=== PATIENT | female | born 1985 | race African-American/Black ===

== ENCOUNTER 2016-11-27 08:02 | Emergency (ER) | payer OTHER ==
[~2016-11-27] VITALS: Ht 170.2 cm; Wt 64.9 kg
[~2016-11-27 08:02] MED LIST: IBUPROFEN600 MG ORAL; KENALOG 0.025%15 GM APPLIC; NKM
--- NOTE | 2016-11-27 08:26 | Emergency Room Report ---
History of Present Illness General Chief Complaint: Female Urogenital Problems Source: Patient Present Illness HPI 31 YOF with 2 days vaginal discharge, white in color. Denies dysuria, polyuria , fever/chills, abd pain, flank pain. Had chlamdyia years ago. Faithful with 1 partner. Denies frequent UTIs. Allergies: Coded Allergies: No Known Allergies (Unverified , 03/07/15) Patient History Past Medical History: none Past Surgical History: none Pertinent Family History: none Social History: Denies: alcohol use, drug use, smoking Last Menstrual Period: 11/20/2016 Now: No Immunizations: UTD Reviewed Nursing Documentation: PMH: Agreed, PSxH: Agreed Nursing Documentation-PMH Past Medical History: No Stated History Review of Systems All Other Systems: negative except mentioned in HPI Physical Exam Vital Signs Date Time Temp Pulse Resp B/P Pulse Ox O2 Delivery O2 Flow Rate FiO2 11/27/16 08:05 98.2 66 14 110/57 99 Room Air Sp02 EP Interpretation: reviewed, normal General Appearance: normal inspection, well appearing, no apparent distress, alert Head: atraumatic ENT: normal ENT inspection, hearing grossly normal, normal voice Neck: normal inspection, full range of motion, supple, no bony tend Respiratory: normal inspection, lungs clear, normal breath sounds, no respiratory distress, no retraction, no wheezing Cardiovascular #1: regular rate, rhythm, no edema Gastrointestinal: normal inspection, normal bowel sounds, non tender, soft, no guarding, no hernia Genitourinary: no CVA tenderness Musculoskeletal: normal inspection, back normal, normal range of motion, Fletcher' s Sign negative Neurologic: normal inspection, alert, oriented x3, responsive, 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 No UTI Patient tx with flagyl 2g here as per Uptodate recommendation Rx for flagyl for 7 days given for her to give to partner Strongly advised avoidance of ETOH during this week of tx Last Vital Signs Date Time Temp Pulse Resp B/P Pulse Ox O2 Delivery O2 Flow Rate FiO2 11/27/16 08:05 98.2 66 14 110/57 99 Room Air Status: improved Disposition: HOME, SELF-CARE Scripts Metronidazole* (FLAGYL*) 500 Mg Tablet 500 MG ORAL BID for 7 Days, #14 TAB Prov: SUNDAR WALDRON M.D. 11/27/16 SUNDAR WALDRON M.D. Nov 27, 2016 08:26
[2016-11-27 09:11] LABS: APPEARANCE,URINE SLIGHTLY CLOUDY; KETONES,URINE NEGATIVE (NEGATIVE); PH,URINE 6 (4.5-8.0); PROTEIN,URINE NEGATIVE (NEGATIVE)
[2016-11-27 09:12] LABS: BACTERIA,URINE FEW /HPF; LEUKOCYTE ESTERASE ,URINE 1+ (NEGATIVE); MUCUS,URINE FEW /LPF (NONE/OCC); NITRITE,URINE NEGATIVE (NEGATIVE); SQUAMOUS EPITHELIAL CELL,UR FEW /LPF (NONE/OCC); UROBILINOGEN,URINE NORMAL MG/DL (0.0-1.0)
[2016-11-27 09:13] LABS: TRICHOMONAS,URINE FEW /HPF
[2016-11-27] MEDS ORDERED: METRONIDAZOLE500 MG ORAL (09:24)
[2016-11-27 09:30] VITALS: BP 100/57
[2016-11-27] MEDS ORDERED: metroNIDAZOLE 500mg tab ORAL ONE (09:30)
== END 2016-11-27 09:30 | disposition home or self-care (01) ==
LOC: EMR 08:25
DX: A59.09 Other urogenital trichomoniasis (principal)
CPT/HCPCS: 81003; 81025; 99283

== ENCOUNTER 2017-04-25 22:24 | Emergency (ER) | payer SELFPAY ==
[~2017-04-25] VITALS: Ht 170.2 cm; Wt 72.6 kg
[~2017-04-25 22:24] MED LIST changes: +METRONIDAZOLE500 MG ORAL
[2017-04-25 22:55] VITALS: BP 108/57
[2017-04-25] MEDS ORDERED: IBUPROFEN600 MG ORAL (22:59)
[2017-04-25] MEDS ORDERED: Ketorolac 60mg Inj IM ONE (23:00)
--- NOTE | 2017-04-25 23:04 | Emergency Room Report ---
History of Present Illness General Chief Complaint: Back Pain-No Injury Source: Patient Present Illness HPI Is a 31-year-old female with no cerebrovascular issue. She present which complaining of thoracic back pain. This occurred about 3 weeks ago. She was behind someone in line and she has he sneezed really badly. She tried to stifle it. When she did sneezed she felt pain to her left/mid upper back. She said brought her to her knee. Denies any fever chills denies any nausea vomiting. Since then she been having some intermittent pain. Especially when she takes a deep breath or movement. No fever or chills. No nausea no vomiting. For some reason his been worse in the last few days. Pain is 8/10. Better with ibuprofen. Allergies: Coded Allergies: No Known Allergies (Unverified , 03/07/15) Patient History Past Medical History: see triage record, old chart reviewed Past Surgical History: other Pertinent Family History: none Social History: Denies: smoking Last Menstrual Period: April 10, 2017 Now: No : 2 Para: 2 Immunizations: other Reviewed Nursing Documentation: PMH: Agreed, PSxH: Agreed Nursing Documentation-PMH Past Medical History: No Stated History Review of Systems Eye: Denies: blurred vision, eye pain ENT: Denies: ear pain, nose congestion, throat swelling Respiratory: Denies: cough, shortness of breath Cardiovascular: Denies: chest pain, palpitations Gastrointestinal: Denies: abdominal pain, diarrhea, nausea, vomiting Musculoskeletal: Reports: back pain, Denies: joint pain Skin: Denies: rash Neurological: Denies: headache, numbness Endocrine: Denies: increased thirst, increased urine Hematologic/Lymphatic: Denies: easy bruising All Other Systems: negative except mentioned in HPI Physical Exam Vital Signs Date Time Temp Pulse Resp B/P Pulse Ox O2 Delivery O2 Flow Rate FiO2 04/25/17 22:45 98.2 78 18 144/90 100 Room Air vitals unremarkable Sp02 EP Interpretation: reviewed, normal General Appearance: well appearing, no apparent distress, alert Head: normocephalic, atraumatic Eyes: bilateral eye EOMI, bilateral eye PERRL ENT: hearing grossly normal, normal pharynx Neck: full range of motion, supple, no meningismus Respiratory: chest non-tender, lungs clear, normal breath sounds Cardiovascular #1: regular rate, rhythm, no murmur Gastrointestinal: normal bowel sounds, non tender, no mass, no organomegaly, no bruit, non-distended Musculoskeletal: back normal - Tender to palpation over the medial aspect of the left scapula area. No deformity. No foreign body., gait/station normal, normal range of motion Neurologic: alert, oriented x3 Psychiatric: mood/affect normal Skin: warm/dry Medical Decision Making Diagnostic Impression: Primary Impression: Strain of thoracic region Qualified Codes: S29.019A - Strain of muscle and tendon of unspecified wall of thorax, initial encounter ER Course Patient with back strain/muscle strain from sneezing. No evidence of pneumonia. No evidence of ACS, PE, dissection to name a few. We'll discharge home. Chest X-Ray Diagnostic Results Chest X-Ray Diagnostic Results : Chest X-Ray Ordered: Yes # of Views/Limited/Complete: 1 View Indication: Chest Pain EP Interpretation: Yes Interpretation: no consolidation, no effusion, no pneumothorax, no acute cardiopulmonary disease Impression: No acute disease Interpreting ER Provider: Electronically signed by Shemar Iqbal MD Last Vital Signs Date Time Temp Pulse Resp B/P Pulse Ox O2 Delivery O2 Flow Rate FiO2 04/25/17 22:45 98.2 78 18 144/90 100 Room Air Status: improved Disposition: HOME, SELF-CARE Condition: Stable Scripts Ibuprofen* (MOTRIN*) 600 Mg Tablet 600 MG ORAL Q8H Y for For Pain, #30 TAB 0 Refills Prov: SHEMAR IQBAL M.D. 04/25/17 Patient Instructions: Back Pain, Adult Additional Instructions: No heavy lifting. Followup with your DrJonny in 3-7 days as needed. Return if symptom worsen. SHEMAR IQBAL M.D. Apr 25, 2017 23:04
[2017-04-25 23:19] VITALS: BP 140/72
--- NOTE | 2017-04-26 11:17 | Diagnostic Imaging Report ---
Indication: Dyspnea Comparison: None A single view chest radiograph was obtained. Findings: Cardiomediastinal appearance is within normal limits for age. Pulmonary vascularity is appropriate. The diaphragmatic contour is smooth and costophrenic angles are sharp. No pleural effusions are identified. There is a scoliosis of the thoracic spine. Impression: No acute findings
== END 2017-04-25 22:49 | disposition home or self-care (01) ==
LOC: EMR 22:35
DX: S29.019A Strain of muscle and tendon of unspecified wall of thorax, initial encounter (principal); R07.9 Chest pain, unspecified; X58.XXXA Exposure to other specified factors, initial encounter; Y92.9 Unspecified place or not applicable
CPT/HCPCS: 71010; 96372; 99283

== ENCOUNTER 2017-06-22 00:38 | Emergency (ER) | payer SELFPAY ==
[~2017-06-22] VITALS: Ht 170.2 cm; Wt 70.3 kg
[2017-06-22 00:58] VITALS: BP 112/68
[2017-06-22 01:18] VITALS: BP 112/68
--- NOTE | 2017-06-22 01:22 | Emergency Room Report ---
History of Present Illness General Chief Complaint: Neck Pain Source: Patient Present Illness HPI Is a 32-year-old female with no past medical history. She presents with complaint of neck pain. Onset for last 2 days. He said it hurts her to swallow. Her to hold her head up. Denies any fever or chills he denies any nausea vomiting. She felt like there is a swollen area to the neck. Denies any other complaint. No trauma. No hoarseness of her voice. No weight loss. Allergies: Coded Allergies: No Known Allergies (Unverified , 03/07/15) Patient History Past Medical History: see triage record, old chart reviewed Past Surgical History: none Pertinent Family History: none Social History: Denies: smoking Now: No Immunizations: other Reviewed Nursing Documentation: PMH: Agreed, PSxH: Agreed Nursing Documentation-PMH Past Medical History: No Stated History Review of Systems Eye: Denies: eye pain, blurred vision ENT: Denies: ear pain, nose congestion, throat swelling Respiratory: Denies: cough, shortness of breath Cardiovascular: Denies: chest pain, palpitations Gastrointestinal: Denies: abdominal pain, diarrhea, nausea, vomiting Musculoskeletal: Denies: back pain, joint pain Skin: Denies: rash Neurological: Denies: headache, numbness Endocrine: Denies: increased thirst, increased urine Hematologic/Lymphatic: Denies: easy bruising All Other Systems: negative except mentioned in HPI Physical Exam Vital Signs Date Time Temp Pulse Resp B/P (MAP) Pulse Ox O2 Delivery O2 Flow Rate FiO2 06/22/17 00:39 98.2 76 20 112/68 97 Room Air vitals normal Sp02 EP Interpretation: reviewed, normal General Appearance: well appearing, no apparent distress, alert Head: normocephalic, atraumatic Eyes: bilateral eye PERRL, bilateral eye EOMI ENT: hearing grossly normal, normal pharynx Neck: full range of motion, supple, no meningismus, tender - Patient has a mildly enlarged thyroid. No bruit. No redness or warmth. Respiratory: chest non-tender, lungs clear, normal breath sounds Cardiovascular #1: regular rate, rhythm, no murmur Gastrointestinal: normal bowel sounds, non tender, no mass, no organomegaly, no bruit, non-distended Musculoskeletal: back normal, gait/station normal, normal range of motion Psychiatric: mood/affect normal Skin: warm/dry Medical Decision Making Diagnostic Impression: Primary Impression: Neck pain Additional Impression: Goiter, euthyroid ER Course Patient presents with neck pain. This is similar symptoms she had when I saw her 2 years ago. It then her labs were normal. She was laying on the bed with her phone was any difficulty. Now she said that she came to lift up her neck. She walked in here without a problem. No neck issue then. I explained to the patient that she need to followup with her primary care DrJonny and get workup via ultrasound of her thyroid. There is nothing we can do for her in the ER. Nothing that urgent care can do. She did not believe me and got mad and walked out. I see no evidence of respiratory issue. No evidence of mass effect. no evidence of thyroid toxicity. I offered her number to the different clinics in the area but she refused. Last Vital Signs Date Time Temp Pulse Resp B/P (MAP) Pulse Ox O2 Delivery O2 Flow Rate FiO2 06/22/17 00:39 98.2 76 20 112/68 97 Room Air Status: improved Disposition: HOME, SELF-CARE Condition: Stable Referrals: NOT CHOSEN IPA/,REFERRING (PCP) Patient Instructions: NECK PAIN, No Trauma Additional Instructions: Followup with your DrJonny in 7 days. You would need an ultrasound of your thyroid. Return if symptom worsen. BRUNA HARDEN M.D. Jun 22, 2017 01:22
== END 2017-06-22 01:18 | disposition home or self-care (01) ==
LOC: EMR 01:05
DX: M54.2 Cervicalgia (principal); E04.9 Nontoxic goiter, unspecified
CPT/HCPCS: 99282

== ENCOUNTER 2019-05-15 21:49 | Emergency (ER) | payer MEDICAID, OTHER ==
[~2019-05-15] VITALS: Ht 170.2 cm; Wt 70.3 kg
[2019-05-15 22:05] VITALS: BP 109/65
--- NOTE | 2019-05-15 22:05 | NUR ---
ED Nurse Note: Patient walked into ED c/o lower abdominal pain that she rates a 9/10 pain. at time of arrival patient reports no episodes of vomiting, states that shes just experiencing pain. patient is alert and oriented x4, ambulatory with a steady gait, VSS
--- NOTE | 2019-05-15 22:20 | Emergency Room Report ---
History of Present Illness General Chief Complaint: Abdominal Pain Source: Patient Present Illness HPI This is a 33-year-old female with no past medical history. She presents with chief complaint of abdominal pain. Onset yesterday. Worsened today. Pain is to the right flank area rating down the right lower quadrant area. Has a couple episode of nausea and vomiting today. Normal appetite for dinner. No diarrhea. No fever chills. Pain is sharp and crampy. 8 out of 10. Denies any trauma. Nothing made it better. Palpation made it worse. No urinary complaint. Allergies: Coded Allergies: No Known Allergies (Unverified , 03/07/15) Patient History Past Medical History: see triage record, old chart reviewed Past Surgical History: none Pertinent Family History: none Social History: Denies: smoking Last Menstrual Period: 04/24/19 Now: No Reviewed Nursing Documentation: PMH: Agreed; PSxH: Agreed Nursing Documentation-PMH Past Medical History: No Stated History Review of Systems Eye: Denies: eye pain, blurred vision ENT: Denies: ear pain, nose congestion, throat swelling Respiratory: Denies: cough, shortness of breath Cardiovascular: Denies: chest pain, palpitations Gastrointestinal: Reports: abdominal pain, nausea, vomiting; Denies: diarrhea Musculoskeletal: Denies: back pain, joint pain Skin: Denies: rash Neurological: Denies: headache, numbness Endocrine: Denies: increased thirst, increased urine Hematologic/Lymphatic: Denies: easy bruising All Other Systems: negative except mentioned in HPI Physical Exam Vital Signs Date Time Temp Pulse Resp B/P (MAP) Pulse Ox O2 Delivery O2 Flow Rate FiO2 05/15/19 22:04 98.4 71 18 109/65 (80) 96 Room Air Vitals normal Sp02 EP Interpretation: reviewed, normal General Appearance: well appearing, no apparent distress, alert Head: normocephalic, atraumatic Eyes: bilateral eye PERRL, bilateral eye EOMI ENT: hearing grossly normal, normal pharynx Neck: full range of motion, supple, no meningismus Respiratory: chest non-tender, lungs clear, normal breath sounds Cardiovascular #1: regular rate, rhythm, no murmur Gastrointestinal: normal bowel sounds, non tender, no mass, no organomegaly, no bruit, non-distended, tenderness - Right lower quadrant Musculoskeletal: back normal, gait/station normal, normal range of motion Psychiatric: mood/affect normal Medical Decision Making Diagnostic Impression: Primary Impression: Cholelithiasis Qualified Codes: K80.20 - Calculus of gallbladder without cholecystitis without obstruction Additional Impression: UTI (urinary tract infection) Qualified Codes: N30.00 - Acute cystitis without hematuria ER Course Patient presents with right-sided abdominal pain. This probably secondary to cholelithiasis and biliary colic. No evidence of cholecystitis or obstruction. Pain is well controlled now. Her elevated liver enzymes probably secondary to inflammatory process that has now resolved. No evidence of any obstruction. Patient does have a urinary tract infection. Antibiotics given here. No evidence of an acute abdomen. Will discharge home. CT/MRI/US Diagnostic Results CT/MRI/US Diagnostic Results : Imaging Test Ordered: CT Abdomen and pelvis Impression Gallstones without cholecystitis per radiologist Last Vital Signs Date Time Temp Pulse Resp B/P (MAP) Pulse Ox O2 Delivery O2 Flow Rate FiO2 05/15/19 22:04 98.4 71 18 109/65 (80) 96 Room Air Status: improved Disposition: HOME, SELF-CARE Condition: Stable Scripts Nitrofurantoin Monohyd/M-Cryst (Nitrofurantoin [place]-Mcr 100 mg) 100 Mg Capsule 100 MG ORAL Q12H, #14 CAP Prov: Shemar Iqbal MD 05/16/19 Ibuprofen* (MOTRIN*) 600 Mg Tablet 600 MG ORAL THREE TIMES A DAY, #30 TAB 0 Refills Prov: Shemar Iqbal MD 05/16/19 Hydrocodone/Acetaminophen 5-325* (HYDROCODONE/ACETAMINOPHEN 5-325*) 1 Each Tablet 1 TAB ORAL Q6H PRN for For Pain, #15 TAB 0 Refills Prov: Shemar Iqbal MD 05/16/19 Additional Instructions: Follow-up with your doctor in 7 days. If continue with pain especially after eating, may need referral to see surgeon for possible surgery. Return if symptoms worsen. Shemar Iqbal MD May 15, 2019 22:20
[2019-05-15] MEDS ORDERED: Ketorolac 30mg Inj IV ONE (22:30)
[2019-05-15 22:55] LABS: BILIRUBIN, URINE NEGATIVE (NEGATIVE); GLUCOSE, URINE (UA) NEGATIVE (NEGATIVE); KETONES,URINE NEGATIVE (NEGATIVE); LEUKOCYTE ESTERASE ,URINE 1+ (NEGATIVE); NITRITE,URINE NEGATIVE (NEGATIVE); PH,URINE 6.5 (4.5-8.0); PROTEIN,URINE NEGATIVE (NEGATIVE); UROBILINOGEN,URINE 4 MG/DL (0.0-1.0)
[2019-05-15 22:58] LABS: APPEARANCE,URINE SLIGHTLY CLOUDY; BASOPHILS % (AUTO) 0.9 % (0.0-2.0); COLOR,URINE YELLOW; EOSINOPHILS % (AUTO) 0.9 % (0.0-3.0); HEMATOCRIT 39.3 % (37.0-47.0); HEMOGLOBIN 12.8 G/DL (12.0-16.0); LYMPHOCYTES % (AUTO) 22.2 % (20.0-45.0); MEAN CORPUSCULAR VOLUME 86 FL (80-99); MONOCYTES % (AUTO) 8.4 % (1.0-10.0); NEUTROPHILS % (AUTO) 67.6 % (45.0-75.0); PLATELET COUNT 315 K/UL (150-450); RED BLOOD COUNT 4.55 M/UL (4.20-5.40); RED CELL DISTRIBUTION WIDTH 11.4 % (11.6-14.8); WHITE BLOOD COUNT 9.4 K/UL (4.8-10.8)
[2019-05-15 23:08] LABS: ANION GAP 5 mmol/L (5-15); BLOOD UREA NITROGEN 5 mg/dL (7-18); CARBON DIOXIDE 29 MMOL/L (21-32); CHLORIDE 105 MMOL/L (98-107); CREATININE 0.7 MG/DL (0.55-1.30); POTASSIUM 3.1 MMOL/L (3.5-5.1); SODIUM 139 MMOL/L (136-145)
[2019-05-15 23:14] LABS: ALANINE AMINOTRANSFERASE 413 U/L (12-78); ALBUMIN 3.8 G/DL (3.4-5.0); ALBUMIN/GLOBULIN RATIO 1.3 (1.0-2.7); ALKALINE PHOSPHATASE 120 U/L (46-116); ASPARTATE AMINO TRANSFERASE 621 U/L (15-37); BILIRUBIN,TOTAL 0.8 MG/DL (0.2-1.0)
--- NOTE | 2019-05-15 23:43 | Diagnostic Imaging Report ---
Indication: Abdominal pain since yesterday, worsening today, right flank area radiating down the right lower quadrant Technique: Spiral acquisitions obtained through the abdomen and pelvis. No oral contrast utilized, per emergency room physician request No IV contrast utilized, per referring physician request.. Multiplanar reconstructions were generated. Total dose length product 877.61 mGycm. CTDIvol(s) 17.49 mGy. Dose reduction achieved using automated exposure control Comparison: None Findings: The appendix is normal. There is a small amount of free pelvic fluid. No evidence of diverticulosis or diverticulitis. No small bowel distention. The distal esophagus, stomach, duodenum are unremarkable. Lack of IV contrast limits assessment of solid organs. The gallbladder contains gallstones. The liver, bile ducts, pancreas, spleen, adrenals, kidneys are unremarkable. No ureteral calculi, hydronephrosis, or hydroureter. The uterus contains an intrauterine device. No pelvic mass or adenopathy. The included lung bases demonstrate minimal atelectatic changes on the left. The bones are unremarkable. Impression: No acute abnormality Trace free pelvic fluid, presumably physiologic Cholelithiasis. No evidence of acute cholecystitis Intrauterine device, basilar pulmonary dependent atelectatic changes incidentally noted The CT scanner at [facility] [place] is accredited by the [employer] and the scans are performed using protocols designed to limit radiation exposure to as low as reasonably achievable to attain images of sufficient resolution adequate for diagnostic evaluation.
[2019-05-15] MEDS ORDERED: cefTRIAXone 1 GM in NS 55 ML IVPB ONE (23:45)
[2019-05-16] MEDS ORDERED: HYDROCODON-ACE1 EA15 ORAL (00:07)
[2019-05-16] MEDS ORDERED: MACROBID100 MG ORAL (00:07)
[2019-05-16] MEDS ORDERED: IBUPROFEN600 MG ORAL (00:07)
[2019-05-16 00:25] VITALS: BP 125/79
--- NOTE | 2019-05-16 00:25 | NUR ---
ER DISCHARGE NOTE: Patient is cleared to be discharged per ERMD, pt is aox4, on room air, with stable vital signs. pt was given dc and prescription instructions, pt was able to verbalize understanding, pt id band and iv site removed without complications. pt is able to ambulate with steady gait. pt took all belongings.
== END 2019-05-16 00:25 | disposition home or self-care (01) ==
LOC: EMR 22:21
DX: K80.20 Calculus of gallbladder without cholecystitis without obstruction (principal); N39.0 Urinary tract infection, site not specified; Z97.5 Presence of (intrauterine) contraceptive device
CPT/HCPCS: 36415; 74176; 80053; 81003; 81025; 83690; 85025; 87086; 96361; 96365; 96375; 99284; J0696; J1885

== ENCOUNTER 2019-08-12 18:46 | Emergency (ER) | payer MEDICAID, OTHER ==
[~2019-08-12] VITALS: Ht 170.2 cm; Wt 70.3 kg
[~2019-08-12 18:46] MED LIST changes: +HYDROCODON-ACE1 EA15 ORAL; +MACROBID100 MG ORAL
[2019-08-12 19:12] VITALS: BP 117/72
--- NOTE | 2019-08-12 19:12 | NUR ---
ED Nurse Note: Pt walked in due to right arm pain and redness x 1 day. Also noted redness on right foot. No SOB. VSS.
[2019-08-12] MEDS ORDERED: Tylenol #3 tab (300mg/30mg) ORAL ONE (19:45)
--- NOTE | 2019-08-12 19:46 | Emergency Room Report ---
History of Present Illness General Chief Complaint: Skin Rash/Abscess Source: Patient Present Illness HPI 34-year-old female presents to the emergency department complaining of 8 out of 10 severity pain, swelling and erythema to the posterior of the right upper arm x1 day. Patient also reports small area of erythema and warmth in addition to itching to the right foot. Patient denies notable trauma or fall, open wounds or bleeding. Patient denies fevers or chills. Patient reports tenderness to palpation. Pt. denies fevers, chills or swollen tender lymph nodes. Denies lesions/rashes elsewhere on the body. Denies new medications or body washes or creams. Denies swelling of the lips, tongue , throat or airway. Denies wheezing , or shortness of breath. Denies recent travel, recent illness or ill contacts. denies blisters, oral lesions, or sloughing of the skin. Allergies: Coded Allergies: No Known Allergies (Unverified , 03/07/15) Patient History Past Medical History: see triage record, other - thyroid disorder Past Surgical History: none Last Menstrual Period: 07/2019 Now: No Reviewed Nursing Documentation: PMH: Agreed; PSxH: Agreed Nursing Documentation-PMH Past Medical History: No History, Except For Review of Systems All Other Systems: negative except mentioned in HPI Physical Exam Vital Signs Date Time Temp Pulse Resp B/P (MAP) Pulse Ox O2 Delivery O2 Flow Rate FiO2 08/12/19 19:08 98.4 78 20 117/72 (87) 99 Room Air Sp02 EP Interpretation: reviewed, normal General Appearance: no apparent distress, alert, GCS 15, non-toxic Head: normocephalic, atraumatic Eyes: bilateral eye normal inspection, bilateral eye PERRL ENT: hearing grossly normal, normal voice Neck: full range of motion Respiratory: chest non-tender, lungs clear, normal breath sounds, no wheezing, speaking full sentences Cardiovascular #1: regular rate, rhythm, no edema, normal capillary refill Cardiovascular #2: 2+ radial (R), 2+ radial (L) Musculoskeletal: back normal, gait/station normal, normal range of motion, non- tender, inflammation - distal aspect of the right UE, tender - Distal aspect of the right upper extremity. Neurologic: alert, oriented x3, responsive, motor strength/tone normal, sensory intact, speech normal, grossly normal Psychiatric: judgement/insight normal Skin: other - Diffuse erythema, warmth and swelling to the distal aspect of the right upper extremity approximately 4 inches in diameter not involving the elbow joint. And 2 cm area of erythema, warmth and swelling to the medial right foot. No open wounds, blisters or vesicles. Lymphatic: no adenopathy Medical Decision Making PA Attestation Dr. Galan is my supervising Physician whom patient management has been discussed with. Diagnostic Impression: Primary Impression: Cellulitis Qualified Codes: L03.113 - Cellulitis of right upper limb ER Course 34-year-old female presents to the emergency department complaining of 8 out of 10 severity pain, swelling and erythema to the posterior of the right upper arm x1 day. Patient also reports small area of erythema and warmth in addition to itching to the right foot. Patient denies notable trauma or fall, open wounds or bleeding. Patient denies fevers or chills. Patient reports tenderness to palpation. Pt. denies fevers, chills or swollen tender lymph nodes. Denies lesions/rashes elsewhere on the body. Denies new medications or body washes or creams. Denies swelling of the lips, tongue , throat or airway. Denies wheezing , or shortness of breath. Denies recent travel, recent illness or ill contacts. denies blisters, oral lesions, or sloughing of the skin. Ddx considered but are not limited to cellulitis, septic joint, SJS, insect bite , localized immune reaction, allergic reaction, fracture, d/L, gout Vital signs: are WNL, pt. is afebrile H&PE are most consistent with cellulitis of the right UE, and insect bite of the right medial foot with localized reaction. ORDERS: none required at this time, the diagnosis is clinical ED INTERVENTIONS: -Tylenol # 3 -Right arm Sling applied by radiology technologist. Pt. remains neurovascularly intact. DISCHARGE: At this time pt. is stable for d/c to home. Will provide printed patient care instructions, and any necessary prescriptions. Care plan and follow up instructions have been discussed with the patient prior to discharge. Last Vital Signs Date Time Temp Pulse Resp B/P (MAP) Pulse Ox O2 Delivery O2 Flow Rate FiO2 08/12/19 19:12 98.4 70 20 117/72 99 Room Air Disposition: HOME, SELF-CARE Condition: Stable Scripts Ibuprofen* (MOTRIN*) 600 Mg Tablet 600 MG ORAL THREE TIMES A DAY, #30 TAB 0 Refills Prov: Patricia Tuttle 08/12/19 Acetaminophen With Codeine (T#3) (TYLENOL #3 TAB*) Y Tab 1 TAB ORAL Q8HR PRN for For Pain, #4 TAB Prov: Patricia Tuttle 08/12/19 Trimethoprim/Sulfamethoxazole 160/800* (BACTRIM DS TABLET*) 1 Each Tablet 1 TAB ORAL TWICE A DAY for 7 Days, #14 TAB Prov: Patricia Tuttle 08/12/19 Cephalexin* (KEFLEX*) 500 Mg Capsule 500 MG ORAL EVERY 12 HOURS for 7 Days, #14 CAP 0 Refills Prov: Patricia Tuttle 08/12/19 Departure Forms: Return to Work Return to Work Date: Aug 14, 2019 Work Restrictions: No Heavy Lifting Other Restrictions: limited use of right arm. May return Sooner if Symptoms have resolved. Return to Full Activity: Aug 21, 2019 Patient Instructions: Cellulitis, [id number] Additional Instructions: Take medications as directed. Follow up with a Primary Care Provider in 3-5 days, even if your symptoms have resolved. Return sooner to ED if new symptoms occur, or current symptoms become worse. Do not drink alcohol, drive, or operate heavy machinery while taking Tylenol # 3 as this may cause drowsiness. - Please note that this Emergency Department Report was dictated using voxappforming department supervisor technology software, occasionally this can lead to erroneous entry secondary to interpretation by the dictation equipment. Patricia Tuttle Aug 12, 2019 19:46
[2019-08-12] MEDS ORDERED: BACTRIM DS TAB1 EAC1 ORAL (19:55)
[2019-08-12] MEDS ORDERED: ACETAMINOPHEN-1 EAC1 ORAL (19:55)
[2019-08-12] MEDS ORDERED: CEPHALEXIN500 MG ORAL (19:55)
[2019-08-12] MEDS ORDERED: IBUPROFEN600 MG ORAL (19:56)
[2019-08-12 20:00] VITALS: BP 117/72
--- NOTE | 2019-08-12 20:00 | NUR ---
ED Nurse Note: Pt cleared by ERMD for discharge. DC instructions/prescription was given and explained to pt and verbalized understanding of teachings. All medical deviecs such as ID band removed. Pt is AAO x4, ambulatory and left with all personal belongings.
== END 2019-08-12 20:00 | disposition home or self-care (01) ==
LOC: EMR 19:28
DX: L03.113 Cellulitis of right upper limb (principal); E07.9 Disorder of thyroid, unspecified
CPT/HCPCS: 99282

== ENCOUNTER 2019-09-07 11:29 | Emergency (ER) | payer MEDICAID, OTHER ==
[~2019-09-07] VITALS: Ht 170.2 cm; Wt 84.4 kg
[~2019-09-07 11:29] MED LIST changes: +ACETAMINOPHEN-1 EAC1 ORAL; +BACTRIM DS TAB1 EAC1 ORAL; +CEPHALEXIN500 MG ORAL
[2019-09-07] MEDS ORDERED: Metoclopramide 10mg/2ml Inj IVP ONE (12:15)
[2019-09-07] MEDS ORDERED: DiphenhydrAMINE 50mg/ml Inj IVP ONE (12:15)
[2019-09-07] MEDS ORDERED: Omnipaque-300 100ml vial INJ PRN (12:15)
[2019-09-07 12:16] LABS: BASOPHILS % (AUTO) 0.5 % (0.0-2.0); EOSINOPHILS % (AUTO) 0.7 % (0.0-3.0); HEMATOCRIT 45.7 % (37.0-47.0); HEMOGLOBIN 15.4 G/DL (12.0-16.0); LYMPHOCYTES % (AUTO) 23.8 % (20.0-45.0); MEAN CORPUSCULAR VOLUME 84 FL (80-99); MONOCYTES % (AUTO) 8.3 % (1.0-10.0); NEUTROPHILS % (AUTO) 66.8 % (45.0-75.0); PLATELET COUNT 380 K/UL (150-450); RED BLOOD COUNT 5.41 M/UL (4.20-5.40); RED CELL DISTRIBUTION WIDTH 10.2 % (11.6-14.8); WHITE BLOOD COUNT 14.1 K/UL (4.8-10.8)
[2019-09-07 12:24] LABS: INR 0.9 (0.9-1.1)
[2019-09-07 12:30] VITALS: BP 140/78
[2019-09-07 12:30] LABS: ANION GAP 14 mmol/L (5-15); BLOOD UREA NITROGEN 5 mg/dL (7-18); CALCIUM 9.1 MG/DL (8.5-10.1); CARBON DIOXIDE 23 MMOL/L (21-32); CHLORIDE 106 MMOL/L (98-107); CREATININE 0.8 MG/DL (0.55-1.30); POTASSIUM 3.4 MMOL/L (3.5-5.1); SODIUM 143 MMOL/L (136-145)
[2019-09-07 12:34] LABS: ALANINE AMINOTRANSFERASE 69 U/L (12-78); ALBUMIN 4.2 G/DL (3.4-5.0); ALBUMIN/GLOBULIN RATIO 1.1 (1.0-2.7); ALKALINE PHOSPHATASE 113 U/L (46-116); ASPARTATE AMINO TRANSFERASE 100 U/L (15-37); BILIRUBIN,TOTAL 0.7 MG/DL (0.2-1.0)
[2019-09-07] MEDS ORDERED: HYDROmorphone 1mg/ml Carpuject ONE (12:34)
[2019-09-07] MEDS ORDERED: HYDROmorphone 1mg/ml Carpuject IVP ONE ×2 (12:45→16:00)
[2019-09-07 13:35] VITALS: BP 137/68
[2019-09-07 15:33] LABS: APPEARANCE,URINE CLOUDY; BILIRUBIN, URINE NEGATIVE (NEGATIVE); COLOR,URINE PALE YELLOW; GLUCOSE, URINE (UA) 1+ (NEGATIVE); KETONES,URINE 3+ (NEGATIVE); LEUKOCYTE ESTERASE ,URINE 1+ (NEGATIVE); NITRITE,URINE NEGATIVE (NEGATIVE); PH,URINE 8 (4.5-8.0); PROTEIN,URINE NEGATIVE (NEGATIVE); UROBILINOGEN,URINE NORMAL MG/DL (0.0-1.0)
[2019-09-07 15:35] VITALS: BP 126/68
--- NOTE | 2019-09-07 15:52 | Emergency Room Report ---
History of Present Illness General Chief Complaint: Abdominal Pain Source: Patient (Harish Gallardo MD) Present Illness HPI Patient presents with severe abdominal pain. She feels it diffusely in her abdomen. Started yesterday. She has had problems with gallbladder pain in the past but this feels different. She has been vomiting uncontrollably also. There is no coffee grounds. When she vomits it tastes bitter like bile she had a normal bowel movement earlier today. No blood, melena or constipation. She denies any dysuria at this time. She is broken out in a sweat. In April she was evaluated for abdominal pain. Abdominal CT was performed which revealed gallstones. Her white count was normal at that time. This is the medical decision making: Patient presents with right-sided abdominal pain. This probably secondary to cholelithiasis and biliary colic. No evidence of cholecystitis or obstruction. Pain is well controlled now. Her elevated liver enzymes probably secondary to inflammatory process that has now resolved. No evidence of any obstruction. Patient does have a urinary tract infection. Antibiotics given here. No evidence of an acute abdomen. Will discharge home. No fevers, chills, sore throat, chest pain, palpitations, shortness of breath, joint pain, rashes, depression, anxiety, visual changes, dizziness, headache. She was evaluated here for a goiter. She was deemed to be euthyroid. (Harish Gallardo MD) Allergies: Coded Allergies: No Known Allergies (Unverified , 03/07/15) Patient History Past Medical History: see triage record Social History: Reports: drug use - THC Social History Narrative With significant other Last Menstrual Period: 07/2019 Now: No Reviewed Nursing Documentation: PMH: Agreed; PSxH: Agreed (Harish Gallardo MD) Nursing Documentation-PMH Past Medical History: No History, Except For (Harish Gallardo MD) Physical Exam Vital Signs Date Time Temp Pulse Resp B/P (MAP) Pulse Ox O2 Delivery O2 Flow Rate FiO2 09/07/19 11:45 98.2 55 20 129/72 (91) 98 Room Air Sp02 EP Interpretation: reviewed, normal General Appearance: well appearing, GCS 15, non-toxic, moderate distress Head: normocephalic, atraumatic Eyes: bilateral eye normal inspection, bilateral eye PERRL, bilateral eye EOMI ENT: moist mucus membranes Neck: full range of motion, thyromegaly Respiratory: lungs clear, normal breath sounds Cardiovascular #1: regular rate, rhythm Cardiovascular #2: 2+ radial (R) Gastrointestinal: normal inspection, normal bowel sounds, no mass, non- distended, no rebound, guarding - diffuse, tenderness Genitourinary: no CVA tenderness Musculoskeletal: back normal, normal range of motion Neurologic: alert, oriented x3, grossly normal Psychiatric: anxious - and in pain Skin: diaphoresis, warm/dry (Harish Gallardo MD) Medical Decision Making Diagnostic Impression: Primary Impression: Abdominal pain Qualified Codes: R10.11 - Right upper quadrant pain Additional Impressions: UTI (urinary tract infection) Qualified Codes: N30.00 - Acute cystitis without hematuria Symptomatic cholelithiasis ER Course The patient presents with severe abdominal pain that began last night. Differential includes gastritis, gastroenteritis, diverticulitis, pancreatitis, appendicitis, urinary tract infection, pyelonephritis amongst others. The patient is an extremis and pain at this time. Evaluation will be with labs and CT of the abdomen, EKG. Patient will be treated with IV hydration and analgesia and anti-medics with some Pepcid. After first dose of morphine pain still significant. Dilaudid given. Improvement after Dilaudid able to rest. Initial EKG suggests atrial fibrillation however I read more atrial bigeminy. Labs with elevated white count. Elevated AST. Slightly low potassium. EKG repeated. Normal sinus rhythm with nonspecific ST-T wave changes. Ultrasound ordered. Flagyl added. Concern for cholecystitis. Pain returns. Also nausea. Zofran given and repeat Dilaudid. CT pending. Patient signed out to Dr. Oneil Laboratory Tests Test 09/07/19 11:55 09/07/19 15:10 White Blood Count 14.1 K/UL (4.8-10.8) H Red Blood Count 5.41 M/UL (4.20-5.40) H Hemoglobin 15.4 G/DL (12.0-16.0) Hematocrit 45.7 % (37.0-47.0) Mean Corpuscular Volume 84 FL (80-99) Mean Corpuscular Hemoglobin 28.5 PG (27.0-31.0) Mean Corpuscular Hemoglobin Concent 33.8 G/DL (32.0-36.0) Red Cell Distribution Width 10.2 % (11.6-14.8) L Platelet Count 380 K/UL (150-450) Mean Platelet Volume 5.3 FL (6.5-10.1) L Neutrophils (%) (Auto) 66.8 % (45.0-75.0) Lymphocytes (%) (Auto) 23.8 % (20.0-45.0) Monocytes (%) (Auto) 8.3 % (1.0-10.0) Eosinophils (%) (Auto) 0.7 % (0.0-3.0) Basophils (%) (Auto) 0.5 % (0.0-2.0) Prothrombin Time 10.1 SEC (9.30-11.50) Prothrombin Time INR 0.9 (0.9-1.1) PTT 26 SEC (23-33) Sodium Level 143 MMOL/L (136-145) Potassium Level 3.4 MMOL/L (3.5-5.1) L Chloride Level 106 MMOL/L (98-107) Carbon Dioxide Level 23 MMOL/L (21-32) Anion Gap 14 mmol/L (5-15) Blood Urea Nitrogen 5 mg/dL (7-18) L Creatinine 0.8 MG/DL (0.55-1.30) Estimate Glomerular Filtration Rate > 60 mL/min (>60) Glucose Level 146 MG/DL (74-106) H Calcium Level 9.1 MG/DL (8.5-10.1) Total Bilirubin 0.7 MG/DL (0.2-1.0) Aspartate Amino Transferase (AST) 100 U/L (15-37) H Alanine Aminotransferase (ALT) 69 U/L (12-78) Alkaline Phosphatase 113 U/L (46-116) Total Protein 8.1 G/DL (6.4-8.2) Albumin 4.2 G/DL (3.4-5.0) Globulin 3.9 g/dL Albumin/Globulin Ratio 1.1 (1.0-2.7) Lipase 141 U/L (73-393) Human Chorionic Gonadotropin, Qual Negative (NEGATIVE) Serum Alcohol < 3 mg/dL Urine Color Pale yellow Urine Appearance Cloudy Urine pH 8 (4.5-8.0) Urine Specific Rougon 1.015 (1.005-1.035) Urine Protein Negative (NEGATIVE) Urine Glucose (UA) 1+ (NEGATIVE) H Urine Ketones 3+ (NEGATIVE) H Urine Blood 2+ (NEGATIVE) H Urine Nitrite Negative (NEGATIVE) Urine Bilirubin Negative (NEGATIVE) Urine Urobilinogen Normal MG/DL (0.0-1.0) Urine Leukocyte Esterase 1+ (NEGATIVE) H Urine RBC 2-4 /HPF (0 - 2) H Urine WBC 5-10 /HPF (0 - 2) H Urine Squamous Epithelial Cells Moderate /LPF (NONE/OCC) H Urine Amorphous Sediment Moderate /LPF (NONE) H Urine Bacteria Few /HPF (NONE) Urine Opiates Screen Pending Urine Barbiturates Screen Pending Phencyclidine (PCP) Screen Pending Urine Amphetamines Screen Pending Urine Benzodiazepines Screen Pending Urine Cocaine Screen Pending Urine Marijuana (THC) Screen Pending (Harish Gallardo MD) EKG Diagnostic Results Rate: other Rhythm: other - Indeterminate rhythm possible atrial fibrillation versus atrial bigeminy ST Segments: no acute changes (Harish Gallardo MD) Rhythm Strip Diag. Results EP Interpretation: yes Rhythm: NSR, no PVC's, other - PACs (Harish Gallardo MD) CT/MRI/US Diagnostic Results CT/MRI/US Diagnostic Results : Impression Preliminary Findings Only See Final Report For Complete Findings CT ABDOMEN & PELVIS With Contrast: Comparison is made to CT abdomen/pelvis on 05/15/2019. Cholelithiasis. Small splenule. Excreting contrast in the renal collecting systems. No hydronephrosis. Normal appendix. Prominence of the cramer of the colon may be secondary to under distention versus colitis. No small bowel obstruction. Intrauterine device in appropriate position. Mild prominence of the bladder wall may be secondary to underdistention. Please correlate with urinalysis if concerned for cystitis. Collapsing cyst or corpus luteum in the left ovary. Radiologist: Vinod Allen M.D. Study ready at 15:25 and initial results transmitted at 16:26 *This report constitutes a preliminary interpretation only. Non-acute findings felt to be unrelated to the clinical presentation may not be discussed in this report. The study will be interpreted and a final report will be generated by the local Radiologist the following shift. To reach the hospital radiology department call [phone]. (Vishal Oneil MD) Last Vital Signs Date Time Temp Pulse Resp B/P (MAP) Pulse Ox O2 Delivery O2 Flow Rate FiO2 09/07/19 18:30 98.2 09/07/19 16:30 72 16 116/72 98 Room Air Status: improved (Harish Gallardo MD) Reevaluation Time: 17:21 Reevaluation Impression Assumed care of the patient from Dr. Gallardo approximately 1630 Briefly, this a 34-year-old female presenting for evaluation of severe abdominal pain and vomiting. She was found to have a small increase in her white blood cell count and an increased in her AST. At the time of signout a CT scan was pending. This is now been resulted showing cholelithiasis, normal appendix, no evidence of obstruction and no hydronephrosis. An ultrasound of the right upper quadrant was obtained showing significant stone burden in the gallbladder and at the neck of the gallbladder but no pericholecystic fluid, no CBD dilation, no signs of acute cholecystitis, choledocholithiasis or cholangitis. The patient is required multiple rounds of antiemetics and pain medications. Discussed with Dr. Muñiz who has accepted the patient for transfer to [facility] per her insurance plan. She is stable for transfer. (Vishal Oneil MD) Disposition: XFER SHT-TRM HOSP Condition: Serious Referrals: NON PHYSICIAN (PCP) Harish Gallardo MD Sep 07, 2019 15:52 Vishal Oneil MD Sep 07, 2019 17:29
[2019-09-07] MEDS ORDERED: cefTRIAXone 1 GM in NS 55 ML IVPB ONE (16:00)
--- NOTE | 2019-09-07 16:28 | Diagnostic Imaging Report ---
Clinical Indication: Abdominal pain with nausea and vomiting Technique: Patient given oral contrast. IV administration nonionic contrast. Venous phase spiral acquisition obtained through the abdomen and pelvis. Multiplanar reconstructions were generated. Total dose length product 926 mGycm. CTDIvol(s) 15 mGy. Dose reduction achieved using automated exposure control Comparison: 05/15/2019 noncontrast study Findings: The appendix is normal. No evidence of colonic diverticulosis or diverticulitis. Contrast traverses entirety of the small bowel, reaches the cecum. No small bowel distention or small bowel wall thickening. The distal esophagus, stomach, duodenum are unremarkable. The gallbladder contains gallstones. The liver, pancreas, spleen, adrenals, kidneys are all unremarkable. No renal or ureteral calculi, hydronephrosis, nor hydroureter. No pelvic mass or adenopathy. Uterus again demonstrates an intrauterine device. The included lung bases are clear. The bones are unremarkable. Impression: No acute abnormality Cholelithiasis Intrauterine device This essentially agrees with the preliminary interpretation provided overnight by [facility] teleradiology service. The CT scanner at [facility] is accredited by the [employer] and the scans are performed using protocols designed to limit radiation exposure to as low as reasonably achievable to attain images of sufficient resolution adequate for diagnostic evaluation.
[2019-09-07 16:30] VITALS: BP 116/72
[2019-09-07] MEDS ORDERED: Hydromorphone 0.5mg/0.5ml inj IVP ONE (16:30)
[2019-09-07] MEDS ORDERED: Morphine Sulfate 4mg/ml Inj (IV USE ONLY) IVP ONE (18:00)
[2019-09-07 18:30] VITALS: BP 118/66
--- NOTE | 2019-09-07 19:08 | Diagnostic Imaging Report ---
Indication: Abdominal pain, abnormal liver function tests Technique: Medina-scale and duplex images of the upper abdomen were obtained Comparison: CT scan of earlier the same day Findings: Gallbladder demonstrates gallstones. No gallbladder wall thickening nor pericholecystic fluid. However, sonographic Garcia's sign is positive. Common bile duct measures 2 mm in diameter. No intrahepatic biliary ductal dilatation. Liver demonstrates normal echogenicity, no focal abnormality. Portal vein and hepatic veins are patent. Pancreas is unremarkable. Spleen is unremarkable. Left kidney measures 12.5 cm in length. Right kidney measures 12.5 cm length. Both kidneys demonstrate normal echogenicity. There is no hydronephrosis. No focal abnormality . Non-aneurysmal abdominal aorta . Impression: Cholelithiasis. Positive sonographic Garcia's sign raises concern for acute cholecystitis. Correlate with clinical findings, consider hepatobiliary nuclear scan if there is high clinical suspicion Negative for dilated bile ducts No other significant abnormality This agrees with the preliminary interpretation provided overnight by [facility].
[2019-09-07 21:54] VITALS: BP 116/68
--- NOTE | 2019-09-10 08:31 | Cardiology Report ---
APPROVED REPORT EKG Measurement Heart [id number] Normal sinus rhythm Abnormal QRS-T angle, consider primary T wave abnormality Abnormal ECG
--- NOTE | 2019-09-10 08:35 | Cardiology Report ---
APPROVED REPORT EKG Measurement Heart [id number] Atrial fibrillation with premature ventricular or aberrantly conducted complexes T wave abnormality, consider inferior ischemia Abnormal ECG
== END 2019-09-07 21:54 | disposition short-term general hospital (02) ==
LOC: EMR 11:50 → EDBEDREQ 16:36 → EMR 21:54
DX: R10.11 Right upper quadrant pain (principal); N30.00 Acute cystitis without hematuria; K80.20 Calculus of gallbladder without cholecystitis without obstruction; Z97.5 Presence of (intrauterine) contraceptive device
CPT/HCPCS: 36415; 74177; 76700; 80053; 80307; 81003; 83690; 84703; 85025; 85610; 85730; 86850; 86900; 86901; 93005; 96361; 96365; 96367; 96375; 96376; G0480; J0696; J1170; J1200; J2270; J2405; J2765; J7030; Q9967; S0028; Z7502; 99285

== ENCOUNTER 2020-08-11 14:42 | Emergency (ER) | payer MEDICAID, OTHER ==
[~2020-08-11] VITALS: Ht 170.2 cm; Wt 69.4 kg
--- NOTE | 2020-08-11 15:00 | NUR ---
ED Nurse Note: Pt ambulated to ED from home d/t redness and possible insect bites on LT upper arm. Pt is AOx4, calm and cooperative to care. 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 Placed on chair.
[2020-08-11 16:11] VITALS: BP 127/76
--- NOTE | 2020-08-11 16:17 | Emergency Room Report ---
History of Present Illness General Chief Complaint: Skin Rash/Abscess Present Illness HPI 35 YO female presents to the ED c/o 03/31 in severity pain, tenderness, erythema, warmth and swelling to three itchy insect bites on the left arm that has been progressive x 4 days. Pt. denies fevers, chills or swollen tender lymph nodes. Denies lesions/rashes elsewhere on the body. Denies new medications or body washes or creams. Denies swelling of the lips, tongue , throat or airway. Denies wheezing, or shortness of breath. Denies recent travel, recent illness or ill contacts. 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 Patient History Past Medical History: see triage record Past Surgical History: none Pertinent Family History: none Last Menstrual Period: last week Now: No Reviewed Nursing Documentation: PMH: Agreed; PSxH: Agreed Review of Systems All Other Systems: negative except mentioned in HPI Physical Exam Vital Signs Date Time Temp Pulse Resp B/P (MAP) Pulse Ox O2 Delivery O2 Flow Rate FiO2 08/11/20 14:51 98.2 76 16 127/76 (93) 97 Room Air Sp02 EP Interpretation: reviewed, normal General Appearance: no apparent distress, alert, GCS 15, non-toxic Head: normocephalic, atraumatic Eyes: bilateral eye normal inspection, bilateral eye PERRL ENT: hearing grossly normal, normal voice, other - no stridor, no swelling of the lips or tongue Neck: full range of motion Respiratory: chest non-tender, lungs clear, normal breath sounds, no respiratory distress, no accessory muscle use, no wheezing, speaking full sentences Cardiovascular #1: regular rate, rhythm, normal capillary refill Cardiovascular #2: 2+ radial (L) Musculoskeletal: normal range of motion, gait/station normal, non-tender Neurologic: alert, motor strength/tone normal, oriented x3, sensory intact, responsive, speech normal Psychiatric: judgement/insight normal Skin: other - Three discrete areas of swelling, erythema and warmth with excoriations noted. on the left UE, no blisters or vesicles Lymphatic: no adenopathy Medical Decision Making PA Attestation Dr. Peterson Is my supervising Physician whom patient management has been discussed with. Diagnostic Impression: Primary Impression: Insect bites of multiple sites, infected ER Course 35 YO female presents to the ED c/o 03/31 in severity pain, tenderness, erythema, warmth and swelling to three itchy insect bites on the left arm that has been progressive x 4 days. Pt. denies fevers, chills or swollen tender lymph nodes. Denies lesions/rashes elsewhere on the body. Denies new medications or body washes or creams. Denies swelling of the lips, tongue , throat or airway. Denies wheezing, or shortness of breath. Denies recent travel, recent illness or ill contacts. denies blisters, oral lesions, or sloughing of the skin Ddx considered but are not limited to cellulitis, scabies, insect bites, tic bites, spider bites, contact dermatitis, Drug reaction, allergic reaction, fungal infection, lice. Vital signs: are WNL, pt. is afebrile H&PE are most consistent with localized reaction to insect bites of the left UE with secondary cellulitis. ORDERS: none required at this time, the diagnosis is clinical ED INTERVENTIONS: None required at this time. DISCHARGE: At this time pt. is stable for d/c to home. Will provide printed patient care instructions, and any necessary prescriptions. Care plan and follow up instructions have been discussed with the patient prior to discharge. Last Vital Signs Date Time Temp Pulse Resp B/P (MAP) Pulse Ox O2 Delivery O2 Flow Rate FiO2 08/11/20 14:51 98.2 76 16 127/76 (93) 97 Room Air Disposition: HOME, SELF-CARE Condition: Stable Referrals: Rachael Bullock Comp[facility]ny [facility] Departure Forms: Return to Work Return to Work Date: Aug 13, 2020 Other Restrictions: May return Sooner if Symptoms have resolved. Return to Full Activity: Aug 13, 2020 Work Restrictions: No Heavy Lifting Patient Instructions: Cellulitis, [id number], Insect Bite Additional Instructions: Take medications as directed. Do not drink alcohol, drive, or operate heavy machinery while taking Benadryl as this may cause drowsiness. Follow up with a Primary Care Provider in 3-5 days, even if your symptoms have resolved. --Please review list of primary care clinics, if you do not already have a primary care provider Return sooner to ED if new symptoms occur, or current symptoms become worse. Do not drink alcohol, drive, or operate heavy machinery while taking Benadryl as this may cause drowsiness. - Please note that this Emergency Department Report was dictated using [employer] breaker technology software, occasionally this can lead to erroneous entry secondary to interpretation by the dictation equipment. Patricia Tuttle Aug 11, 2020 16:16
[2020-08-11] MEDS ORDERED: CEPHALEXIN500 MG ORAL (16:18)
[2020-08-11] MEDS ORDERED: HYDROCORTISONE28 G2 TP (16:18)
[2020-08-11] MEDS ORDERED: BENADRYL ALLERG25 M1 PO (16:18)
[2020-08-11 16:24] VITALS: BP 127/76
--- NOTE | 2020-08-11 16:24 | NUR ---
ER DISCHARGE NOTE: Patient is cleared to be discharged per ERPA, pt is aox4, on room air, with stable vital signs. pt was given dc and prescription instructions, pt was able to verbalize understanding, pt id band removed pt is able to ambulate with steady gait. pt took all belongings.
== END 2020-08-11 16:24 | disposition home or self-care (01) ==
LOC: EMR 16:20
DX: S40.862A Insect bite (nonvenomous) of left upper arm, initial encounter (principal); W57.XXXA Bitten or stung by nonvenomous insect and other nonvenomous arthropods, initial encounter; Y92.9 Unspecified place or not applicable; L03.114 Cellulitis of left upper limb
CPT/HCPCS: 99282

== ENCOUNTER 2020-11-13 20:13 | Emergency (ER) | payer OTHER ==
[~2020-11-13] VITALS: Ht 170.2 cm; Wt 70.3 kg
[~2020-11-13 20:13] MED LIST changes: +BENADRYL ALLERG25 M1 PO; +HYDROCORTISONE28 G2 TP
[2020-11-13] MEDS ORDERED: Ketorolac 30mg Inj IV ONE (20:30)
[2020-11-13 20:38] LABS: APPEARANCE,URINE CLEAR; BILIRUBIN, URINE NEGATIVE (NEGATIVE); COLOR,URINE PALE YELLOW; GLUCOSE, URINE (UA) NEGATIVE (NEGATIVE); KETONES,URINE 1+ (NEGATIVE); LEUKOCYTE ESTERASE ,URINE 1+ (NEGATIVE); NITRITE,URINE POSITIVE (NEGATIVE); PH,URINE 6 (4.5-8.0); PROTEIN,URINE NEGATIVE (NEGATIVE); UROBILINOGEN,URINE NORMAL MG/DL (0.0-1.0)
--- NOTE | 2020-11-13 20:41 | Emergency Room Report ---
History of Present Illness General Chief Complaint: Pain Present Illness HPI 35-year-old female with no significant past medical history here complaining of 2 days of epigastric abdominal pain and both sided rib pain. Complains of little bit of shortness of breath. Reports that she tested positive for Covid in September, however tested - November 06. Denies any cough or congestion, diarrhea, nausea or vomiting. Denies change of pain with change of position. Has not taken medication for symptom relief. Denies any fall or injury, lifting heavy objects. Denies any flatulence at this time. Denies palpitation. Denies headache and dizziness. Reports that last menstrual period was October 25. Patient reports that she has an IUD. 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 COVID-19 Screening: Negative COVID-19 COVID-19 Testing Source: 11/06/2020 Patient History Past Medical History: see triage record Past Surgical History: none Pertinent Family History: none Last Menstrual Period: n/a Immunizations: UTD Reviewed Nursing Documentation: PMH: Agreed; PSxH: Agreed Review of Systems All Other Systems: negative except mentioned in HPI Physical Exam Vital Signs Date Time Temp Pulse Resp B/P (MAP) Pulse Ox O2 Delivery O2 Flow Rate FiO2 11/13/20 20:18 98.2 86 118/68 (85) 100 Room Air Sp02 EP Interpretation: reviewed, normal General Appearance: no apparent distress, alert, GCS 15, non-toxic Head: normocephalic, atraumatic Eyes: bilateral eye normal inspection, bilateral eye PERRL ENT: hearing grossly normal, normal pharynx, no angioedema, normal voice Neck: full range of motion, supple, thyroid normal, no meningismus, no bony tend, supple/symm/no masses Respiratory: chest non-tender, lungs clear, normal breath sounds, no rhonchi, no respiratory distress, no retraction, speaking full sentences Cardiovascular #1: regular rate, rhythm, no edema, no murmur Gastrointestinal: normal bowel sounds, non tender, soft, no mass, no organomegaly, no peritonitis, no bruit, non-distended, no guarding, no hernia, no pulsatile mass, no rebound Rectal: deferred Genitourinary: no CVA tenderness Musculoskeletal: back normal Neurologic: alert, motor strength/tone normal, oriented x3, sensory intact, responsive, speech normal Psychiatric: judgement/insight normal, memory normal, mood/affect normal, no suicidal/homicidal ideation Skin: no rash Lymphatic: no adenopathy Medical Decision Making PA Attestation All my diagnosis and treatment plans were reviewed ad discussed with my supervising physician Dr. Hernandez Diagnostic Impression: Primary Impression: Chest pain Additional Impression: UTI (urinary tract infection) ER Course 35-year-old female with no significant past medical history here complaining of 2 days of epigastric abdominal pain and both sided rib pain. Complains of little bit of shortness of breath. Reports that she tested positive for Covid in September, however tested - November 06. Denies any cough or congestion, diarrhea, nausea or vomiting. Denies change of pain with change of position. Has not taken medication for symptom relief. Denies any fall or injury, lifting heavy objects. Denies any flatulence at this time. Denies palpitation. Denies headache and dizziness. Reports that last menstrual period was October 25. Patient reports that she has an IUD. Denies alcohol intake, drug use, tobacco smoke Ddx considered but are not limited to: MS, Angina, COPD, GERD, gastritis pancreatitis, pneumonia, Vital signs: are WNL, pt. is afebrile H&PE are most consistent with ORDERS: EKG, Chest XR, cardiac labs ED INTERVENTIONS: NS bolus, Toradol, Zofran, Pepcid I signed on the patient to Dr. Hernandez and 9 PM EKG Diagnostic Results Rate: normal Rhythm: NSR ST Segments: no acute changes Other Impression No acute ST changes ASA given to the pt in ED: No Chest X-Ray Diagnostic Results Chest X-Ray Diagnostic Results : Chest X-Ray Ordered: Yes # of Views/Limited/Complete: 1 View Indication: Chest Pain EP Interpretation: Yes PA Xray: Interpretation reviewed, by supervising MD, and agrees with findings. Interpretation: no consolidation, no effusion, no pneumothorax Impression: No acute disease Electronically Signed by: Alex GEMRAN [employer] Text TECHNIQUE: Frontal view of the chest. COMPARISON: No relevant prior studies available. FINDINGS: Lungs: Unremarkable. No consolidation. Pleural space: Unremarkable. No pneumothorax. Heart: Unremarkable. No cardiomegaly. Mediastinum: Unremarkable. Bones/joints: Mild mid thoracic scoliosis convexed to the right IMPRESSION: No acute findings in the chest. Last Vital Signs Date Time Temp Pulse Resp B/P (MAP) Pulse Ox O2 Delivery O2 Flow Rate FiO2 11/13/20 20:18 98.2 86 118/68 (85) 100 Room Air Alex Salazar Nov 13, 2020 20:41
[2020-11-13 20:50] VITALS: BP 116/80
--- NOTE | 2020-11-13 20:52 | NUR ---
ED Nurse Note: Pt walked in from home. walks with a steady gait, axox4, vitals stable on RA as documented, speaks in full sentances, breathing is even and unlabored, no signs of distress noted. Pt states that 3 days a go she started to expereince intermittend chest pain when she was lying down or at rest. she states that it feels sore around the bottom of her rib cage bilateraly. She states no difficulty breathing or feeling short of breath. labs draw, ekg done at bedside, urine sent to lab.
[2020-11-13 21:11] LABS: EOSINOPHILS % (AUTO) 1.5 % (0.0-3.0); HEMATOCRIT 39.7 % (37.0-47.0); LYMPHOCYTES % (AUTO) 33.6 % (20.0-45.0); MEAN CORPUSCULAR VOLUME 87 FL (80-99); MONOCYTES % (AUTO) 8.1 % (1.0-10.0); NEUTROPHILS % (AUTO) 55.8 % (45.0-75.0); PLATELET COUNT 336 K/UL (150-450); RED BLOOD COUNT 4.58 M/UL (4.20-5.40); RED CELL DISTRIBUTION WIDTH 12.1 % (11.6-14.8); WHITE BLOOD COUNT 9.5 K/UL (4.8-10.8)
--- NOTE | 2020-11-13 21:21 | Diagnostic Imaging Report ---
EXAM: XR Chest, 1 View CLINICAL HISTORY: PAIN TECHNIQUE: Frontal view of the chest. COMPARISON: No relevant prior studies available. FINDINGS: Lungs: Unremarkable. No consolidation. Pleural space: Unremarkable. No pneumothorax. Heart: Unremarkable. No cardiomegaly. Mediastinum: Unremarkable. Bones/joints: Mild mid thoracic scoliosis convexed to the right IMPRESSION: No acute findings in the chest.
[2020-11-13 21:36] LABS: ANION GAP 8 mmol/L (5-15); BLOOD UREA NITROGEN 8 mg/dL (7-18); CALCIUM 9.1 MG/DL (8.5-10.1); CARBON DIOXIDE 27 MMOL/L (21-32); CHLORIDE 105 MMOL/L (98-107); CREATININE 0.8 MG/DL (0.55-1.30); POTASSIUM 3.3 MMOL/L (3.5-5.1); SODIUM 139 MMOL/L (136-145)
[2020-11-13 21:41] LABS: ALANINE AMINOTRANSFERASE 24 U/L (12-78); ALBUMIN 3.8 G/DL (3.4-5.0); ALBUMIN/GLOBULIN RATIO 1.1 (1.0-2.7); ALKALINE PHOSPHATASE 93 U/L (46-116); ASPARTATE AMINO TRANSFERASE 20 U/L (15-37); BILIRUBIN,TOTAL 0.3 MG/DL (0.2-1.0)
[2020-11-13] MEDS ORDERED: CEPHALEXIN500 MG ORAL (21:54)
[2020-11-13] MEDS ORDERED: FAMOTIDINE20 MG ORAL (22:19)
[2020-11-13] MEDS ORDERED: ONDANSETRON ODT4 MG BC (22:19)
--- NOTE | 2020-11-13 22:25 | NUR ---
ER DISCHARGE NOTE: Patient is cleared to be discharged per ERMD, pt is aox4, on room air, with stable vital signs. pt was given dc and prescription instructions, pt was able to verbalize understanding, pt id band and iv site removed without complications. pt is able to ambulate with steady gait. pt took all belongings. Pt left in a private car
[2020-11-13 22:35] VITALS: BP 125/90
== END 2020-11-13 22:25 | disposition home or self-care (01) ==
LOC: EMR 20:45
DX: R07.9 Chest pain, unspecified (principal); N39.0 Urinary tract infection, site not specified; Z86.16 Personal history of COVID-19
CPT/HCPCS: 36415; 71045; 80053; 80307; 81003; 81025; 83690; 84484; 85025; 85379; 93005; 96361; 96374; 96375; J1885; J2405; J7030; S0028; Z7502; 99284